=== PATIENT | male | born 1955 | race Hispanic/Latino ===

== ENCOUNTER 2016-11-12 08:13 | Emergency (ER) | payer BC ==
[2016-11-12] MEDS ORDERED: Sodium Chloride 0.9% 500 ML IV STA (09:40)
--- NOTE | 2016-11-12 09:42 | ED PDOC ---
HPI: General Adult Time Seen by Provider: 11/12/16 09:12 Chief Complaint (Nursing): Palpitations Chief Complaint (Provider): Palpitations History Per: Patient Onset/Duration Of Symptoms: Days (Today 630am) Current Symptoms Are (Timing): Gone Now Additional Complaint(s): Today pt. was doing well and went to work. He got into an arguement with a co- worker and started getting palpitations and dizziness like all was off balance. Laste 5 minutes and went away on its own. Before, during, or after did not have any chest pain, dyspnea, numbness, tingles, weakness, vision changes, neck pain, cough, abd pain, vomit/nausea. States he feels fine with no symptoms currently as he is in a calm no stress environment. Past Medical History Reviewed: Nursing Documentation, Vital Signs Vital Signs: Last Vital Signs Temp 97 F L 11/12/16 09:00 Pulse 62 11/12/16 09:00 Resp 16 11/12/16 09:00 BP 125/73 11/12/16 09:00 Pulse Ox 98 11/12/16 09:00 - Medical History PMH: No Chronic Diseases - Surgical History Surgical History: No Surg Hx - Family History Family History: States: Unknown Family Hx - Social History Current smoker - smoking cessation education provided: Yes Alcohol: None Drugs: Denies - Home Medications Home Medications: Ambulatory Orders Medication Instructions Recorded No Known Home Med 11/12/16 - Allergies Allergies/Adverse Reactions: Allergies Allergy/AdvReac Type Severity Reaction Status Date / Time No Known Allergies Allergy Verified 11/12/16 09:29 Review of Systems ROS Statement: Except As Marked, All Systems Reviewed And Found Negative Cardiovascular: Positive for: Palpitations Neurological: Positive for: Dizziness Physical Exam - Reviewed Nursing Documentation Reviewed: Yes Vital Signs Reviewed: Yes - Physical Exam Appears: Positive for: Well, Non-toxic, No Acute Distress Head Exam: Positive for: ATRAUMATIC, NORMAL INSPECTION, NORMOCEPHALIC Skin: Positive for: Normal Color, Warm, DRY Eye Exam: Positive for: EOMI, Normal appearance, PERRL ENT: Positive for: Normal ENT Inspection Neck: Positive for: Normal, Painless ROM Cardiovascular/Chest: Positive for: Regular Rate, Rhythm. Negative for: Edema Respiratory: Positive for: CNT, Normal Breath Sounds Gastrointestinal/Abdominal: Positive for: Normal Exam, Bowel Sounds, Soft. Negative for: Tenderness Back: Positive for: Normal Inspection. Negative for: L CVA Tenderness, R CVA Tenderness Extremity: Positive for: Normal ROM. Negative for: Tenderness, Pedal Edema Neurologic/Psych: Positive for: Alert, .net programmer II-XII, Oriented. Negative for: Motor/Sensory Deficits, Facial Droop - Laboratory Results Result Diagrams: 11/12/16 09:50 11/12/16 09:50 Interpretation Of Abn Labs: 5.1 k - ECG ECG: Positive for: Interpreted By Me, Viewed By Me ECG Rhythm: Positive for: Normal QRS, Normal ST Segment, Sinus Rhythm - CT Scan/US ct Other Rad Studies (CT/US): Read By Radiologist Other Rad Interpretation: no acute - Progress ED Course And Treament: 1112: Stable. AAOx3. Pain free. Tolerated po. Pt. ambulated with no issues. Fu with pcp. Disposition - Clinical Impression Clinical Impression: Palpitations, Dizziness, Hyperkalemia - Patient ED Disposition Is Patient to be Admitted: No Counseled Patient/Family Regarding: Studies Performed, Diagnosis - Disposition Referrals: [facility] [Outside] - 11/15/16 Disposition: Routine/Home Disposition Time: 11:15 Condition: STABLE Additional Instructions: Return if not better in 3 days. Instructions: Palpitations (ED), Dizziness (ED) Print Language: BELARUSIAN
--- NOTE | 2016-11-12 09:54 | CARD ---
APPROVED REPORT EKG Measurement Heart [id number] <Conclusion> Normal sinus rhythm Low voltage QRS Borderline ECG
[2016-11-12 10:01] LABS: BASO % 0.5 % (0.0-2.0); EOS # 0.1 K/uL (0.0-0.7); EOS % 0.8 % (0.0-4.0); HEMATOCRIT 46.8 % (35.0-51.0); LYMPH # 1.6 K/uL (1.0-4.3); LYMPH % 18.8 % (20.0-40.0); MEAN CELL VOLUME 88.8 fl (80.0-94.0); MEAN CORPUSCULAR HEMOGLOBIN 30.5 pg (27.0-31.0); MEAN CORPUSCULAR HGB CONC 34.4 g/dL (33.0-37.0); MEAN PLATELET VOLUME 7.4 fl (7.2-11.7); MONO # 0.6 K/uL (0.0-0.8); MONO % 7.2 % (0.0-10.0); NEUT % 72.7 % (50.0-75.0); RED CELL DISTRIBUTION WIDTH 13.3 % (11.5-14.5); WHITE BLOOD COUNT 8.3 K/uL (4.8-10.8)
[2016-11-12 10:16] LABS: ALB/GLOB RATIO 1.2 (1.0-2.1); ALKALINE PHOSPHATASE 56 U/L (38-126); ALT/SGPT 64 U/L (21-72); AST/SGOT 62 U/L (17-59); BILIRUBIN,TOTAL 1.4 mg/dl (0.2-1.3); BLOOD UREA NITROGEN 11 mg/dl (9-20); CALCIUM 9.6 mg/dL (8.4-10.2); CARBON DIOXIDE 30 mmol/L (22-30); CHLORIDE 103 mmol/L (98-107); GFR AFRICAN-AMERICAN > 60; GLUCOSE,RANDOM 95 mg/dL (75-110); POTASSIUM 5.1 MMOL/L (3.6-5.0); SODIUM 141 mmol/l (132-148); TOTAL PROTEIN 7.3 G/DL (6.3-8.2)
--- NOTE | 2016-11-12 10:36 | CT ---
PROCEDURE: CT HEAD WITHOUT CONTRAST. HISTORY: headache COMPARISON: None available. TECHNIQUE: Axial computed tomography images were obtained through the head/brain without intravenous contrast. Radiation dose: Total exam DLP = 841.51 mGy-cm. This CT exam was performed using one or more of the following dose reduction techniques: Automated exposure control, adjustment of the mA and/or kV according to patient size, and/or use of iterative reconstruction technique. FINDINGS: HEMORRHAGE: No intracranial hemorrhage. BRAIN: No mass effect or edema. No atrophy or chronic microvascular ischemic changes. VENTRICLES: Unremarkable. No hydrocephalus. CALVARIUM: Unremarkable. PARANASAL SINUSES: Unremarkable as visualized. No significant inflammatory changes. MASTOID AIR CELLS: Unremarkable as visualized. No inflammatory changes. OTHER FINDINGS: None. IMPRESSION: No acute intracranial abnormalities. No significant findings to account for the clinical presentation.
[2016-11-12 10:41] VITALS: BP 125/73; PULSE 62; RESP 16; TEMP 97; O2SAT 98
[2016-11-12] MEDS ORDERED: Sod Polystyrene Sulf 15 gm/60 ml Oral Susp PO STA (11:10)
== END 2016-11-12 11:25 | disposition home or self-care (01) ==
LOC: H.ER 08:13
DX: R00.2 Palpitations (principal); R42 Dizziness and giddiness; E87.5 Hyperkalemia; F17.200 Nicotine dependence, unspecified, uncomplicated; R51 Headache
CPT/HCPCS: 70450; 80053; 84484; 85025; 93005; 96360; 96361; 99283; J7040